=== PATIENT | female | born 1995 | race African-American/Black ===

== ENCOUNTER 2017-06-07 13:11 | Emergency (ER) | payer BC, OTHER | END 2017-06-07 14:04 | disposition home or self-care (01) | LOC: ERS 13:11 | DX: J30.9 Allergic rhinitis, unspecified (principal) | CPT/HCPCS: 99283 ==

== ENCOUNTER 2017-09-29 07:54 | Emergency (ER) | payer BC ==
--- NOTE | 2017-09-29 09:27 | RAD ---
2 VIEW CHEST SERIES: Date: 09/29/17 INDICATION: Cough. FINDINGS: The lungs are clear. There is no effusion or pneumothorax. Cardiac silhouette is mildly enlarged. Sli ght interstitial prominence at the bilateral perihilar regions are present. Osseous structures intact . IMPRESSION: Mild prominence of the cardiac silhouette. There is also slight prominence of the perihilar regions. Recommend clinical correlation, as well as appropriate clinical follow-up. CODE T. POS: RYAN
== END 2017-09-29 09:47 | disposition home or self-care (01) ==
LOC: ERS 07:54
DX: J40 Bronchitis, not specified as acute or chronic (principal)
CPT/HCPCS: 71046; 94640; J7620

== ENCOUNTER 2018-01-15 05:51 | Emergency (ER) | payer BC | END 2018-01-15 06:45 | disposition home or self-care (01) | LOC: ERS 05:51 | DX: T16.2XXA Foreign body in left ear, initial encounter (principal) | CPT/HCPCS: 69200 ==

== ENCOUNTER 2018-04-26 14:02 | Emergency (ER) | payer BC | END 2018-04-26 14:38 | disposition home or self-care (01) | LOC: ERS 14:02 | DX: S29.012A Strain of muscle and tendon of back wall of thorax, initial encounter (principal); V43.52XA Car driver injured in collision with other type car in traffic accident, initial encounter; Y92.481 Parking lot as the place of occurrence of the external cause | CPT/HCPCS: 99283 ==

== ENCOUNTER 2018-08-07 13:20 | Emergency (ER) | payer BC | END 2018-08-07 14:26 | disposition home or self-care (01) | LOC: ERS 13:20 | DX: H66.92 Otitis media, unspecified, left ear (principal); J06.9 Acute upper respiratory infection, unspecified | CPT/HCPCS: 99283 ==

== ENCOUNTER 2018-09-05 18:28 | Emergency (ER) | payer BC | END 2018-09-05 20:37 | disposition left against medical advice (07) | LOC: ERS 18:28 | DX: Z53.21 Procedure and treatment not carried out due to patient leaving prior to being seen by health care provider (principal) ==

== ENCOUNTER 2019-01-04 08:00 | Outpatient (CLI) | payer BC ==
[2019-01-04] MEDS ORDERED: Sodium Chloride 0.9% 15 ML NEB ONE ×2 (09:00→11:11)
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
== END 2019-01-04 08:01 | disposition home or self-care (01) ==
LOC: WCC 08:00
PROVIDERS: ATTEND Family Medicine
DX: L98.499 Non-pressure chronic ulcer of skin of other sites with unspecified severity (principal)
CPT/HCPCS: 97602; 99203; A4218; G0463

== ENCOUNTER 2021-06-24 22:07 | Emergency (ER) | payer BC, SELFPAY ==
[2021-06-25 00:01] LABS: Bilirubin Negative (Negative); Blood, Urine Trace (Negative); Clarity Turbid (Clear); Glucose, Urine (Dipstick) Greater than 1000 mg/dL (Negative); Ketone, Urine Negative (Negative); Leukocyte 25 Leu/uL (Negative); Nitrite Negative (Negative); Protein, Urine (Dipstick) 30 mg/dL (Neg-Trace); RBC/HPF Greater than 50 HPF (0-3); Specific Gravity, Urine 1.038 (1.002-1.036); Squamous Epithelial 0-3 HPF (0-3); Urobilinogen 3 mg/dL (Less than 2); WBC/HPF 21-50 HPF (0-3); pH, Urine 6.5 (5.0-9.0)
[2021-06-25 00:02] LABS: Bacteria/HPF 1+ HPF (None Seen); Pregnancy Test - Urine (BHCG) Negative (Negative); Pregu Control Background? CLEAR/WHITE (CLR/WHITE); Pregu Control Bar Appear? YES (CONTROL BAR); Specific Gravity 1.038 (1.002-1.036)
== END 2021-06-25 00:34 | disposition left against medical advice (07) ==
LOC: ERS 22:07
DX: B37.3 Candidiasis of vulva and vagina (principal); R81 Glycosuria
CPT/HCPCS: 81003; 81015; 81025; 87480; 87510; 87660; 99283

== ENCOUNTER 2022-05-09 18:14 | Emergency (ER) | payer OTHER, SELFPAY ==
[2022-05-09 18:50] LABS: Pregnancy Test - Urine (BHCG) POSITIVE (Negative)
[2022-05-09 18:51] LABS: Specific Gravity 1.013 (1.002-1.036)
[2022-05-09 18:52] LABS: Bacteria/HPF None Seen HPF (None Seen); Bilirubin Negative (Negative); Blood, Urine 3+ (Negative); Clarity Turbid (Clear); Glucose, Urine (Dipstick) Normal (Negative); Ketone, Urine Negative (Negative); Leukocyte 250 Leu/uL (Negative); Nitrite Negative (Negative); Pregu Control Background? CLEAR/WHITE (CLR/WHITE); Pregu Control Bar Appear? YES (CONTROL BAR); Protein, Urine (Dipstick) Negative (Neg-Trace); RBC/HPF 0-3 HPF (0-3); Specific Gravity, Urine 1.013 (1.002-1.036); Urobilinogen Normal mg/dL (Less than 2)
== END 2022-05-09 19:36 | disposition home or self-care (01) ==
LOC: ERS 18:14
DX: O26.891 Other specified pregnancy related conditions, first trimester (principal); R82.71 Bacteriuria; Z3A.01 Less than 8 weeks gestation of pregnancy
CPT/HCPCS: 81003; 81015; 81025; 99283